=== PATIENT | female | born 1955 | race Caucasian/White ===

== ENCOUNTER 2021-05-05 10:42 | Inpatient (IN) | payer OTHER ==
[~2021-05-05] VITALS: Ht 167.6 cm; Wt 68.4 kg
--- NOTE | 2021-05-05 10:48 | NUR ---
LATE ENTRY- PT BROUGHT IN BY [facility] FROM [facility] FOR RESP FAILURE.
[2021-05-05] MEDS ORDERED: SUCCINYLCHOLINE 20 MG/ML, 10ML IVPush ONE (11:00)
[2021-05-05] MEDS ORDERED: methylPREDNISolone SOD SUCC 125 MG/2 ML IVPB ONE (11:00)
[2021-05-05] MEDS ORDERED: VECURONIUM 10 MG IVPush ONE (11:00)
[2021-05-05] MEDS ORDERED: PROPOFOL 100 ML IV PRN (11:00)
[2021-05-05] MEDS ORDERED: ETOMIDATE 20 MG/10 ML IV ONE (11:00)
[2021-05-05] MEDS ORDERED: SODIUM CHLORIDE 0.9% 1,000ML IVBOLUS ONE (11:00)
[2021-05-05] MEDS ORDERED: SODIUM CHLORIDE FLUSH 10ML SYR IVF ONE (11:00)
[2021-05-05] MEDS ORDERED: PLEASE ENTER HEIGHT AND WEIGHT MC SCH (11:30)
[2021-05-05 11:36] LABS: BASOPHILS % (AUTO) 1 % (0-1); EOSINOPHILS % (AUTO) 3 % (1-7); LYMPHOCYTES % (AUTO) 46 % (22-44); MEAN CORPUSCULAR HEMOGLOBIN 31.6 pg (27.0-34.8); MEAN CORPUSCULAR HGB CONC 32.4 g/dL (32.4-35.8); MEAN PLATELET VOLUME 10.3 fL (7.4-10.4); MONOCYTES % (AUTO) 6 % (2-9); NEUTROPHILS % (AUTO) 45 % (42-75); PLATELET COUNT 200 x10^3/uL (130-400); RED BLOOD COUNT 5.58 x10^6/uL (3.82-5.3); RED CELL DISTRIBUTION WIDTH 14.2 % (9.6-15.2)
[2021-05-05 11:39] LABS: ALBUMIN 3.6 g/dL (3.4-5.0); ANION GAP 8 mmol/L (5-15); CALCIUM 9.7 mg/dL (8.5-10.1); CHLORIDE 109 mmol/L (98-107)
--- NOTE | 2021-05-05 11:39 | NUR ---
LATE ENTRY- 1040 DR ALMENDAREZ AT BEDSIDE, NARROW COMPLEX TACHYCARDIA ON EKG, PT MINIMALLY RESPONSIVE TO STIMULI, SPO2 98% VIA AMBU BAG. PT PREPPED FOR RSI. 1049- PT MEDICATED WITH 20 ETOMIDATE, 100MG SUCCS 1052- INTUBATION BY DR ALMENDAREZ. 7.5 ETT AT 23 LIP.
[2021-05-05 11:47] LABS: ALANINE AMINOTRANSFERASE 25 U/L (12-78); ALKALINE PHOSPHATASE 96 U/L (45-117); BILIRUBIN,TOTAL 0.5 mg/dL (0.2-1.0); CREATININE 0.88 mg/dL (0.55-1.02); TOTAL PROTEIN 7.5 g/dL (6.4-8.2); TROPONIN I < 0.015 ng/mL (0.000-0.045)
[2021-05-05] MEDS ORDERED: HYDROmorphone 1 MG/ML, 1ML INJ ONE (11:52)
[2021-05-05] MEDS ORDERED: HYDROmorphone 1 MG/ML, 1ML INJ IV ONE (12:00)
[2021-05-05] MEDS ORDERED: methylPREDNISolone SOD SUCC 125 MG/2 ML ONE (12:01)
--- NOTE | 2021-05-05 12:03 | NUR ---
Report from Sienna RAMSEY. Pt resting in bed, appears appropriately sedated, lung sounds diminished, pupils PERRL. Dr. Barbosa at bedside to insert chest tube.
[2021-05-05] MEDS ORDERED: LIDOCAINE-MPF 1%, 5ML ONE (12:08)
[2021-05-05] MEDS ORDERED: LIDOCAINE 1%-EPI 1:100K, 20ML ONE (12:09)
--- NOTE | 2021-05-05 12:16 | NUR ---
26F chest tube inserted into R chest wall by Dr. Barbosa. Pt tolerated well, VSS throughout procedure.
--- NOTE | 2021-05-05 12:56 | NUR ---
Pt sedation need readdressed.
[2021-05-05] MEDS ORDERED: OMNIPAQUE 350 MG/ML, 100ML BOTTLE ONE (13:28)
--- NOTE | 2021-05-05 13:28 | NUR ---
Pt's sedation need addressed. PT to and from CT without issue, positioned for comfort in bed with warm blankets. Report to Howard RAMSEY.
--- NOTE | 2021-05-05 13:34 | NUR ---
RECEIVED REPORT FROM AQUILES RAMSEY, PLAN OF CARE DISCUSSED. SON AT BS. [facility] [phone]. PT RESTING, VENT FIO2 91, PEC 20, TOTAL VOLUME 465 PEEP 5, PROPROFOL GTT INFUSING WELL. HUMAN SERVICE SPECIALIST IN SINUS, CONTINOUS SP02 AND CYCLE VS.
[2021-05-05] MEDS ORDERED: ATOR10TA PO (13:39)
[2021-05-05] MEDS ORDERED: DULO30CA2 PO (13:40)
[2021-05-05] MEDS ORDERED: IPRA4AER INH (13:40)
[2021-05-05] MEDS ORDERED: IPRA0.2S35 INH (13:41)
[2021-05-05] MEDS ORDERED: MELO15TA24 PO (13:42)
[2021-05-05] MEDS ORDERED: ALBU90AE2 IH (13:42)
[2021-05-05] MEDS ORDERED: OMEP-110 PO (13:42)
[2021-05-05] MEDS ORDERED: TIOT18CA INH (13:43)
[2021-05-05] MEDS ORDERED: BUDE10.22 INJ (13:44)
[2021-05-05] MEDS ORDERED: BUDE10.2 INH (13:44)
--- NOTE | 2021-05-05 13:54 | NUR ---
DR. VELASQUEZ AT BS, TALKING TO SON.
--- NOTE | 2021-05-05 14:33 | NUR ---
REPOSITIONED PT, RESTING, EYES CLOSED, HR 65 WITH PACS NOTED. SON AT BS
[2021-05-05] MEDS ORDERED: SUCCINYLCHOLINE 20 MG/ML, 10ML ONE (14:48)
[2021-05-05] MEDS ORDERED: PROPOFOL 10 MG/ML, 100ML IV ONE (14:48)
[2021-05-05] MEDS ORDERED: ETOMIDATE 20 MG/10 ML ONE (14:48)
[2021-05-05] MEDS ORDERED: VECURONIUM 20 MG VIAL ONE (14:48)
--- NOTE | 2021-05-05 14:48 | NUR ---
REPORT TO GUANAKO RAMSEY, 325
[2021-05-05 15:18] VITALS: BP 116/66
--- NOTE | 2021-05-05 15:20 | NUR ---
BELONGINGS WITH SON
[2021-05-05] MEDS ORDERED: DEXTROSE 4 GM TAB.CHEW PO PRN (15:30)
[2021-05-05] MEDS ORDERED: DEXTROSE 50%, 50ML SYRINGE IVPush PRN (15:30)
[2021-05-05] MEDS ORDERED: GLUCAGON 1 MG IM PRN (15:30)
[2021-05-05] MEDS: INSULIN LISPRO 100 UNITS/ML, PEN SQ-INSULIN SCH ×2 (15:38→21:00)
[2021-05-05] MEDS: methylPREDNISolone SOD SUCC 125 MG/2 ML IVPush SCH ×2 (15:40→21:07)
[2021-05-05 16:03] LABS: MICROSCOPIC AUTO
[2021-05-05] MEDS: AMPICILLIN/SULBACTAM 3 GM in SODIUM CHLORIDE 0.9% 100 ML IV SCH ×2 (16:06→21:07)
[2021-05-05 16:07] LABS: BARBITURATE SCREEN, URINE Negative (Negative); BENZODIAZEPINE SCREEN, URINE Negative (Negative); CANNABINOID SCREEN, URINE Negative (Negative); COCAINE SCREEN, URINE Negative (Negative); METHADONE SCREEN, URINE Negative (Negative); OPIATE SCREEN, URINE Positive (Negative)
[2021-05-05 16:08] LABS: AMPHETAMINE SCREEN, URINE Negative (Negative)
[2021-05-05] MEDS ORDERED: OMNIPAQUE 350 MG/ML, 75ML BOTTLE ONE (17:13)
[2021-05-05 17:35] LABS: TROPONIN I 0.163 ng/mL (0.000-0.045)
[2021-05-05] MEDS: SODIUM CHLORIDE 0.9% 1,000 ML IV SCH (18:04)
[2021-05-05] MEDS: PROPOFOL 100 ML IV PRN (21:07)
[2021-05-05] MEDS: SODIUM CHLORIDE FLUSH 10ML SYR IVF SCH (21:07)
[2021-05-05] MEDS: ATORVASTATIN 10 MG TABLET PO SCH (21:08)
[2021-05-05 23:32] LABS: TROPONIN I 0.171 ng/mL (0.000-0.045)
[2021-05-06] MEDS: PROPOFOL 100 ML IV PRN ×5 (03:19→22:35)
[2021-05-06] MEDS: SODIUM CHLORIDE 0.9% 1,000 ML IV SCH ×2 (03:58→14:02)
[2021-05-06] MEDS: AMPICILLIN/SULBACTAM 3 GM in SODIUM CHLORIDE 0.9% 100 ML IV SCH ×4 (03:58→21:05)
[2021-05-06] MEDS: methylPREDNISolone SOD SUCC 125 MG/2 ML IVPush SCH ×3 (05:52→17:45)
[2021-05-06] MEDS: INSULIN LISPRO 100 UNITS/ML, PEN SQ-INSULIN SCH ×4 (07:00→21:00)
[2021-05-06] MEDS: SODIUM CHLORIDE FLUSH 10ML SYR IVF SCH (07:56)
[2021-05-06 08:13] LABS: ALANINE AMINOTRANSFERASE 33 U/L (12-78); ALBUMIN 3.1 g/dL (3.4-5.0); ANION GAP 6 mmol/L (5-15); CALCIUM 8.9 mg/dL (8.5-10.1); CHLORIDE 112 mmol/L (98-107); CREATININE 0.55 mg/dL (0.55-1.02)
[2021-05-06 08:15] LABS: ALKALINE PHOSPHATASE 82 U/L (45-117); BILIRUBIN,TOTAL 0.4 mg/dL (0.2-1.0); TOTAL PROTEIN 6.5 g/dL (6.4-8.2)
[2021-05-06] MEDS ORDERED: PHARMACY MAY ADJ FOR RENAL FX MC SCH (09:00)
--- NOTE | 2021-05-06 09:39 | NUR ---
TF recs if needed: Promote w/ end goal rate of 55 mL/hr (on propofol); 65 mL/hr (OFF propofol). Addendum: 05/06/21 at [address] Amended: Links added.
[2021-05-06] MEDS ORDERED: SODIUM BICARB 8.4%, 50ML SYRINGE ONE (10:14)
[2021-05-06] MEDS ORDERED: VERAPAMIL 2.5 MG/ML, 2ML ONE (11:52)
[2021-05-06] MEDS ORDERED: MIDAZOLAM 1 MG/ML, 5ML ONE (11:52)
[2021-05-06] MEDS ORDERED: FENTANYL PF 250 MCG/5ML ONE (11:52)
[2021-05-06] MEDS ORDERED: LIDOCAINE-MPF 1%, 5ML ONE (11:52)
[2021-05-06] MEDS ORDERED: BIVALIRUDIN 250 MG ONE (11:52)
[2021-05-06] MEDS ORDERED: HEPARIN 1,000 UNITS/ML, 10ML ONE (12:00)
[2021-05-06 12:11] LABS: BASOPHILS % (AUTO) 1 % (0-1); EOSINOPHILS % (AUTO) 0 % (1-7); LYMPHOCYTES % (AUTO) 10 % (22-44); MEAN CORPUSCULAR HEMOGLOBIN 31.2 pg (27.0-34.8); MEAN CORPUSCULAR HGB CONC 32.7 g/dL (32.4-35.8); MEAN PLATELET VOLUME 9.9 fL (7.4-10.4); MONOCYTES % (AUTO) 4 % (2-9); NEUTROPHILS % (AUTO) 85 % (42-75); PLATELET COUNT 183 x10^3/uL (130-400); RED BLOOD COUNT 5.14 x10^6/uL (3.82-5.3); RED CELL DISTRIBUTION WIDTH 13.8 % (9.6-15.2)
[2021-05-06] MEDS ORDERED: LIDOCAINE 1%, 20ML ONE (12:45)
[2021-05-06] MEDS ORDERED: LIDOCAINE 2%, 20ML ONE (12:45)
[2021-05-06] MEDS: ATORVASTATIN 10 MG TABLET PO SCH (21:05)
[2021-05-07] MEDS: PROPOFOL 100 ML IV PRN ×2 (02:06→06:56)
[2021-05-07] MEDS: SODIUM CHLORIDE FLUSH 10ML SYR IVF SCH ×3 (02:14→21:39)
[2021-05-07] MEDS: methylPREDNISolone SOD SUCC 125 MG/2 ML IVPush SCH ×4 (02:15→21:38)
[2021-05-07] MEDS: AMPICILLIN/SULBACTAM 3 GM in SODIUM CHLORIDE 0.9% 100 ML IV SCH ×4 (03:46→22:00)
[2021-05-07] MEDS: SODIUM CHLORIDE 0.9% 1,000 ML IV SCH ×2 (04:00→15:00)
[2021-05-07 04:17] LABS: BASOPHILS % (AUTO) 0 % (0-1); EOSINOPHILS % (AUTO) 0 % (1-7); LYMPHOCYTES % (AUTO) 7 % (22-44); MEAN CORPUSCULAR HEMOGLOBIN 31.3 pg (27.0-34.8); MEAN CORPUSCULAR HGB CONC 33.4 g/dL (32.4-35.8); MEAN PLATELET VOLUME 9.9 fL (7.4-10.4); MONOCYTES % (AUTO) 5 % (2-9); NEUTROPHILS % (AUTO) 88 % (42-75); PLATELET COUNT 177 x10^3/uL (130-400); RED BLOOD COUNT 5.06 x10^6/uL (3.82-5.3); RED CELL DISTRIBUTION WIDTH 13.7 % (9.6-15.2)
[2021-05-07 04:28] LABS: ANION GAP 4 mmol/L (5-15); CALCIUM 8.7 mg/dL (8.5-10.1); CHLORIDE 110 mmol/L (98-107)
[2021-05-07] MEDS: INSULIN LISPRO 100 UNITS/ML, PEN SQ-INSULIN SCH ×4 (07:00→21:00)
[2021-05-07 07:56] LABS: CHOL/HDL RATIO 3.1; LDL/HDL RATIO 1.5 (0.5-3.0)
[2021-05-07] MEDS: FAMOTIDINE 20 MG/2 ML IVPush SCH ×2 (10:13→21:38)
[2021-05-07] MEDS: BUDESONIDE 0.5 MG/2 ML INHA INH SCH (19:35)
[2021-05-07] MEDS: ALBUTEROL/IPRATROPIUM 2.5MG/0.5MG, 3 ML NPPB SCH ×2 (19:35→22:00)
[2021-05-07] MEDS: ATORVASTATIN 10 MG TABLET PO SCH (21:00)
[2021-05-07] MEDS: MORPHINE SULFATE 4 MG/ML, 1ML IVPush PRN (21:38)
[2021-05-08] MEDS: methylPREDNISolone SOD SUCC 125 MG/2 ML IVPush SCH ×4 (02:49→21:10)
[2021-05-08] MEDS: AMPICILLIN/SULBACTAM 3 GM in SODIUM CHLORIDE 0.9% 100 ML IV SCH ×4 (02:49→22:44)
[2021-05-08] MEDS: SODIUM CHLORIDE 0.9% 1,000 ML IV SCH (04:00)
[2021-05-08 05:01] LABS: BASOPHILS % (AUTO) 0 % (0-1); EOSINOPHILS % (AUTO) 0 % (1-7); LYMPHOCYTES % (AUTO) 7 % (22-44); MEAN CORPUSCULAR HEMOGLOBIN 31.3 pg (27.0-34.8); MEAN CORPUSCULAR HGB CONC 33.1 g/dL (32.4-35.8); MEAN PLATELET VOLUME 10.1 fL (7.4-10.4); MONOCYTES % (AUTO) 4 % (2-9); NEUTROPHILS % (AUTO) 90 % (42-75); PLATELET COUNT 167 x10^3/uL (130-400); RED BLOOD COUNT 4.92 x10^6/uL (3.82-5.3); RED CELL DISTRIBUTION WIDTH 13.4 % (9.6-15.2)
[2021-05-08] MEDS: ALBUTEROL/IPRATROPIUM 2.5MG/0.5MG, 3 ML NPPB SCH ×4 (05:05→18:00)
[2021-05-08 05:10] LABS: CALCIUM 8.9 mg/dL (8.5-10.1); CHLORIDE 108 mmol/L (98-107); CREATININE 0.45 mg/dL (0.55-1.02)
[2021-05-08 05:17] LABS: ANION GAP 5 mmol/L (5-15)
[2021-05-08] MEDS: INSULIN LISPRO 100 UNITS/ML, PEN SQ-INSULIN SCH ×4 (08:43→21:00)
[2021-05-08] MEDS: FAMOTIDINE 20 MG/2 ML IVPush SCH ×2 (08:44→21:10)
[2021-05-08] MEDS: SODIUM CHLORIDE FLUSH 10ML SYR IVF SCH ×2 (08:44→21:10)
[2021-05-08] MEDS: BUDESONIDE 0.5 MG/2 ML INHA INH SCH ×2 (09:00→19:59)
[2021-05-08] MEDS: OXYcodone IR 5MG TABLET PO PRN ×2 (09:16→21:11)
[2021-05-08] MEDS ORDERED: LACTULOSE 20 GM/30 ML UDC PO PRN (11:30)
[2021-05-08] MEDS ORDERED: BISACODYL 10 MG SUPP PR PRN (11:30)
[2021-05-08] MEDS ORDERED: SODIUM CHLORIDE 0.9% 1,000 ML IV SCH (18:00)
[2021-05-08 19:12] VITALS: BP 119/70
[2021-05-08] MEDS: DOCUSATE 100 MG CAPSULE PO SCH (21:00)
[2021-05-08] MEDS: SENNA/DOCUSATE TABLET PO SCH ×2 (21:00→21:11)
[2021-05-08] MEDS: ATORVASTATIN 10 MG TABLET PO SCH (21:11)
[2021-05-08] MEDS: MORPHINE SULFATE 4 MG/ML, 1ML IVPush PRN (22:45)
[2021-05-09] MEDS: OXYcodone IR 5MG TABLET PO PRN ×2 (01:37→11:42)
[2021-05-09 01:38] VITALS: BP 146/86
[2021-05-09] MEDS: methylPREDNISolone SOD SUCC 125 MG/2 ML IVPush SCH ×4 (04:35→20:25)
[2021-05-09] MEDS: AMPICILLIN/SULBACTAM 3 GM in SODIUM CHLORIDE 0.9% 100 ML IV SCH ×4 (04:36→22:15)
[2021-05-09] MEDS: MORPHINE SULFATE 4 MG/ML, 1ML IVPush PRN ×3 (05:07→22:14)
[2021-05-09 05:14] LABS: BASOPHILS % (AUTO) 0 % (0-1); EOSINOPHILS % (AUTO) 0 % (1-7); LYMPHOCYTES % (AUTO) 8 % (22-44); MEAN CORPUSCULAR HEMOGLOBIN 31.2 pg (27.0-34.8); MEAN CORPUSCULAR HGB CONC 32.8 g/dL (32.4-35.8); MONOCYTES % (AUTO) 6 % (2-9); NEUTROPHILS % (AUTO) 85 % (42-75); PLATELET COUNT 160 x10^3/uL (130-400); RED BLOOD COUNT 4.91 x10^6/uL (3.82-5.3); RED CELL DISTRIBUTION WIDTH 13.1 % (9.6-15.2)
[2021-05-09 05:24] LABS: ANION GAP 5 mmol/L (5-15); CALCIUM 8.6 mg/dL (8.5-10.1); CHLORIDE 104 mmol/L (98-107); CREATININE 0.42 mg/dL (0.55-1.02)
[2021-05-09] MEDS: INSULIN LISPRO 100 UNITS/ML, PEN SQ-INSULIN SCH ×4 (07:00→20:47)
[2021-05-09] MEDS: ALBUTEROL/IPRATROPIUM 2.5MG/0.5MG, 3 ML NPPB SCH ×5 (07:03→21:49)
[2021-05-09] MEDS: BUDESONIDE 0.5 MG/2 ML INHA INH SCH ×2 (07:03→18:48)
[2021-05-09 07:18] VITALS: BP 153/97
[2021-05-09] MEDS: DOCUSATE 100 MG CAPSULE PO SCH ×2 (09:00→20:25)
[2021-05-09] MEDS: POTASSIUM CHLORIDE 20 MEQ TAB.ER.PRT PO SCH ×3 (09:10→18:24)
[2021-05-09] MEDS: SODIUM CHLORIDE FLUSH 10ML SYR IVF SCH ×2 (09:11→20:25)
[2021-05-09] MEDS: SPIRONOLACTONE 25 MG TABLET PO SCH (09:56)
[2021-05-09] MEDS: LISINOPRIL 5 MG TABLET PO SCH (09:56)
[2021-05-09] MEDS: CARVEDILOL 3.125 MG TABLET PO SCH ×2 (09:57→18:24)
[2021-05-09] MEDS ORDERED: ENOXAPARIN 40 MG/0.4 ML SQ SCH (10:00)
[2021-05-09 12:45] VITALS: BP 154/94
[2021-05-09 18:23] VITALS: BP 143/94
[2021-05-09] MEDS: ATORVASTATIN 10 MG TABLET PO SCH (20:25)
[2021-05-09] MEDS: FAMOTIDINE 40 MG TABLET PO SCH (20:25)
[2021-05-09] MEDS: SENNA/DOCUSATE TABLET PO SCH (20:25)
[2021-05-09 20:27] VITALS: BP 127/82
[2021-05-10 01:09] VITALS: BP 118/72
[2021-05-10] MEDS: methylPREDNISolone SOD SUCC 125 MG/2 ML IVPush SCH (01:17)
[2021-05-10] MEDS: POTASSIUM CHLORIDE 20 MEQ TAB.ER.PRT PO SCH (01:18)
[2021-05-10] MEDS: AMPICILLIN/SULBACTAM 3 GM in SODIUM CHLORIDE 0.9% 100 ML IV SCH ×4 (03:43→21:32)
[2021-05-10 05:18] LABS: BASOPHILS % (AUTO) 0 % (0-1); EOSINOPHILS % (AUTO) 0 % (1-7); LYMPHOCYTES % (AUTO) 10 % (22-44); MEAN CORPUSCULAR HEMOGLOBIN 31.6 pg (27.0-34.8); MEAN CORPUSCULAR HGB CONC 33.2 g/dL (32.4-35.8); MEAN PLATELET VOLUME 10.5 fL (7.4-10.4); MONOCYTES % (AUTO) 5 % (2-9); NEUTROPHILS % (AUTO) 85 % (42-75); PLATELET COUNT 160 x10^3/uL (130-400); RED BLOOD COUNT 4.73 x10^6/uL (3.82-5.3); RED CELL DISTRIBUTION WIDTH 13.4 % (9.6-15.2)
[2021-05-10 05:22] LABS: CALCIUM 8.4 mg/dL (8.5-10.1)
[2021-05-10 05:23] LABS: CREATININE 0.42 mg/dL (0.55-1.02)
[2021-05-10] MEDS: CARVEDILOL 3.125 MG TABLET PO SCH ×2 (05:55→16:27)
[2021-05-10 06:29] LABS: ANION GAP 3 mmol/L (5-15); CHLORIDE 104 mmol/L (98-107)
[2021-05-10 06:31] VITALS: BP 116/75
[2021-05-10] MEDS: INSULIN LISPRO 100 UNITS/ML, PEN SQ-INSULIN SCH ×4 (07:00→21:38)
[2021-05-10] MEDS: ALBUTEROL/IPRATROPIUM 2.5MG/0.5MG, 3 ML NPPB SCH ×5 (07:10→23:05)
[2021-05-10] MEDS: BUDESONIDE 0.5 MG/2 ML INHA INH SCH ×2 (07:10→19:09)
[2021-05-10] MEDS: DOCUSATE 100 MG CAPSULE PO SCH ×2 (07:39→21:30)
[2021-05-10] MEDS: SODIUM CHLORIDE FLUSH 10ML SYR IVF SCH ×2 (09:00→21:32)
[2021-05-10] MEDS: SPIRONOLACTONE 25 MG TABLET PO SCH (09:03)
[2021-05-10] MEDS: LISINOPRIL 5 MG TABLET PO SCH (09:03)
[2021-05-10 13:27] VITALS: BP 114/78
[2021-05-10] MEDS: OXYcodone IR 5MG TABLET PO PRN (15:31)
[2021-05-10] MEDS: MORPHINE SULFATE 4 MG/ML, 1ML IVPush PRN (16:27)
[2021-05-10 21:25] VITALS: BP 127/81
[2021-05-10] MEDS: FAMOTIDINE 40 MG TABLET PO SCH (21:31)
[2021-05-10] MEDS: ATORVASTATIN 10 MG TABLET PO SCH (21:32)
[2021-05-11 00:40] VITALS: BP 134/89
[2021-05-11] MEDS: CARVEDILOL 3.125 MG TABLET PO SCH ×2 (06:03→18:08)
[2021-05-11] MEDS: OXYcodone IR 5MG TABLET PO PRN (06:03)
[2021-05-11] MEDS: INSULIN LISPRO 100 UNITS/ML, PEN SQ-INSULIN SCH ×4 (07:00→21:00)
[2021-05-11] MEDS: ALBUTEROL/IPRATROPIUM 2.5MG/0.5MG, 3 ML NPPB SCH ×4 (07:15→20:00)
[2021-05-11] MEDS: BUDESONIDE 0.5 MG/2 ML INHA INH SCH ×2 (07:15→20:04)
[2021-05-11 07:25] VITALS: BP 124/84
[2021-05-11] MEDS: SODIUM CHLORIDE FLUSH 10ML SYR IVF SCH ×2 (07:51→21:45)
[2021-05-11] MEDS: SPIRONOLACTONE 25 MG TABLET PO SCH (07:52)
[2021-05-11] MEDS: DOCUSATE 100 MG CAPSULE PO SCH ×2 (07:52→21:00)
[2021-05-11] MEDS: LISINOPRIL 5 MG TABLET PO SCH (07:52)
[2021-05-11 13:35] VITALS: BP 126/85
[2021-05-11] MEDS: ACETAMINOPHEN 325 MG TABLET PO PRN (15:39)
[2021-05-11 18:07] VITALS: BP 110/74
[2021-05-11 21:37] VITALS: BP 123/73
[2021-05-11] MEDS: FAMOTIDINE 40 MG TABLET PO SCH (21:45)
[2021-05-11] MEDS: ATORVASTATIN 10 MG TABLET PO SCH (21:45)
[2021-05-12 02:14] VITALS: BP 106/76
[2021-05-12 05:49] LABS: BASOPHILS % (AUTO) 0 % (0-1); EOSINOPHILS % (AUTO) 2 % (1-7); LYMPHOCYTES % (AUTO) 25 % (22-44); MEAN CORPUSCULAR HEMOGLOBIN 31.1 pg (27.0-34.8); MEAN CORPUSCULAR HGB CONC 32.9 g/dL (32.4-35.8); MEAN PLATELET VOLUME 10.6 fL (7.4-10.4); MONOCYTES % (AUTO) 6 % (2-9); NEUTROPHILS % (AUTO) 67 % (42-75); PLATELET COUNT 158 x10^3/uL (130-400); RED BLOOD COUNT 5.07 x10^6/uL (3.82-5.3); RED CELL DISTRIBUTION WIDTH 13.2 % (9.6-15.2)
[2021-05-12 05:58] LABS: ANION GAP 2 mmol/L (5-15); CALCIUM 8.5 mg/dL (8.5-10.1); CHLORIDE 103 mmol/L (98-107)
[2021-05-12 05:59] VITALS: BP 114/79
[2021-05-12 05:59] LABS: CREATININE 0.43 mg/dL (0.55-1.02)
[2021-05-12] MEDS: CARVEDILOL 3.125 MG TABLET PO SCH (06:00)
[2021-05-12] MEDS: ALBUTEROL/IPRATROPIUM 2.5MG/0.5MG, 3 ML NPPB SCH ×3 (06:59→14:15)
[2021-05-12] MEDS: BUDESONIDE 0.5 MG/2 ML INHA INH SCH (07:00)
[2021-05-12 07:09] VITALS: BP 90/63
[2021-05-12] MEDS: ACETAMINOPHEN 325 MG TABLET PO PRN (07:54)
[2021-05-12] MEDS: INSULIN LISPRO 100 UNITS/ML, PEN SQ-INSULIN SCH ×3 (08:06→16:11)
[2021-05-12 08:13] VITALS: BP 102/72
[2021-05-12] MEDS ORDERED: POTASSIUM CHLORIDE 20 MEQ TAB.ER.PRT PO ONE (09:00)
[2021-05-12] MEDS ORDERED: SPIRONOLACTONE 50 MG TABLET PO SCH (09:00)
[2021-05-12] MEDS: LISINOPRIL 5 MG TABLET PO SCH (09:03)
[2021-05-12] MEDS: SODIUM CHLORIDE FLUSH 10ML SYR IVF SCH (09:05)
[2021-05-12] MEDS: OXYcodone IR 5MG TABLET PO PRN (09:13)
[2021-05-12] MEDS: DOCUSATE 100 MG CAPSULE PO SCH (09:13)
[2021-05-12 13:25] VITALS: BP 100/63
[2021-05-12] MEDS ORDERED: OXYC5TAB98 PO (14:37)
[2021-05-12] MEDS ORDERED: SPIR50TA PO (14:37)
[2021-05-12] MEDS ORDERED: DOCU-131 PO (14:37)
[2021-05-12] MEDS ORDERED: PRED10TA PO (14:37)
[2021-05-12] MEDS ORDERED: ACET325T26 PO (14:37)
[2021-05-12] MEDS ORDERED: BUDE0.5A INH (14:37)
[2021-05-12] MEDS ORDERED: CARV3.1212 PO (14:37)
[2021-05-12] MEDS ORDERED: ATOR10TA9 PO (14:37)
[2021-05-12] MEDS ORDERED: LISI5TAB7 PO (14:37)
== END 2021-05-12 16:07 | DRG 871 ==
LOC: ED 12:43 → EDIP 13:04 → CCU 15:07 → 5SO 05-08 15:23 → 4WST 05-12 07:48
PROVIDERS: ADMIT Internal Medicine; ATTEND Emergency Medicine
PROC: 0T9B70Z Drainage of Bladder with Drainage Device, Via Natural or Artificial Opening (ICD-10-PCS; principal; 2021-05-05)
PROC: 5A1945Z Respiratory Ventilation, 24-96 Consecutive Hours (ICD-10-PCS; 2021-05-05)
PROC: 0BH17EZ Insertion of Endotracheal Airway into Trachea, Via Natural or Artificial Opening (ICD-10-PCS; 2021-05-05)
PROC: 0W9930Z Drainage of Right Pleural Cavity with Drainage Device, Percutaneous Approach (ICD-10-PCS; 2021-05-05)
PROC: 4A023N7 Measurement of Cardiac Sampling and Pressure, Left Heart, Percutaneous Approach (ICD-10-PCS; 2021-05-06)
PROC: B2111ZZ Fluoroscopy of Multiple Coronary Arteries using Low Osmolar Contrast (ICD-10-PCS; 2021-05-06)
PROC: B2151ZZ Fluoroscopy of Left Heart using Low Osmolar Contrast (ICD-10-PCS; 2021-05-06)
DX: A41.9 Sepsis, unspecified organism (principal); G93.41 Metabolic encephalopathy; I50.21 Acute systolic (congestive) heart failure; J69.0 Pneumonitis due to inhalation of food and vomit; J96.01 Acute respiratory failure with hypoxia; J96.02 Acute respiratory failure with hypercapnia; I51.81 Takotsubo syndrome; J44.0 Chronic obstructive pulmonary disease with (acute) lower respiratory infection; J44.1 Chronic obstructive pulmonary disease with (acute) exacerbation; J93.83 Other pneumothorax; R57.9 Shock, unspecified; Z99.11 Dependence on respirator [ventilator] status; I62.9 Nontraumatic intracranial hemorrhage, unspecified; D75.1 Secondary polycythemia; E16.2 Hypoglycemia, unspecified; E78.00 Pure hypercholesterolemia, unspecified; E78.5 Hyperlipidemia, unspecified; E87.6 Hypokalemia; F17.210 Nicotine dependence, cigarettes, uncomplicated; I25.10 Atherosclerotic heart disease of native coronary artery without angina pectoris; I35.1 Nonrheumatic aortic (valve) insufficiency; K21.9 Gastro-esophageal reflux disease without esophagitis; Z99.81 Dependence on supplemental oxygen
CPT/HCPCS: 36415; 36556; 36600; 74230; 84145; 93458; 96361; 96374; 99291; C8929; J3490; J7626; 70450; 70496; 71045; 71260; 72125; 74177; 80048; 80053; 80061; 80307; 81001; 82140; 82803; 82962; 83036; 83605; 83735; 83880; 84484; 85025; 87040; 87070; 87081; 87205; 93005; 94002; 94003; 94640; C1760; C1769; C1894; G0378; J0295; J0583; J1170; J1644; J1650; J2250; J2704; J3010; Q9957; Q9967; J0330; J1815; J2270; J2930; J7030; J7512